=== PATIENT | female | born 1950 | race Caucasian/White ===

== ENCOUNTER 2022-12-07 16:34 | Emergency (ER) | payer MEDICARE, OTHER ==
[~2022-12-07 16:34] MED LIST: Iopamidol 370 76% 100 ML VIAL ONE
[2022-12-07 17:09] LABS: #Basophils 0.1 10x3/uL (0.0-0.2); #Eosinphils 0.1 10x3/uL (0.0-0.5); #Monocytes 0.6 10x3/uL (0.0-1.1); #Neutrophils 5.6 10x3/uL (1.5-8.4); %Basophils 0.8 % (0.0-2.0); %Eosinophils 0.8 % (0.0-6.0); %Lymphocytes 18.5 % (18.0-47.0); %Monocytes 7.4 % (0.0-10.0); %Neutrophils 72.2 % (40.0-75.0); Hemoglobin 15.4 g/dL (12.0-15.5); Mean Corpuscular HGB CONC 33.8 g/dL (32.0-36.0); Mean Corpuscular Volume 88.5 fl (81.6-98.3); Mean Platelet Volume 9.2 fl (7.4-10.4); Platelet Count 373 10x3/uL (150-450); RBC Distribution Width 13.2 % (11.5-14.5); Red Blood Cell (RBC) Count 5.14 10x6/uL (3.90-5.03); White Blood Cell (WBC) Count 7.8 10x3/uL (3.5-10.5)
[2022-12-07 17:20] LABS: ALT (SGPT) 16 U/L (8-55); AST (SGOT) 37 U/L (5-34); Alkaline Phosphatase 76 U/L (40-110); Anion Gap 18 mmol/L (10-20); BUN (Urea Nitrogen) 18 mg/dL (9.8-20.1); Bilirubin, Total 0.5 mg/dL (0.2-1.2); CK (CPK) 823 U/L (29-168); Calc. Creatinine Clearance 0 mL/min (70-130); Calcium 9.1 mg/dL (7.8-10.44); Carbon Dioxide 20 mmol/L (23-31); Chloride 104 mmol/L (98-107); Estimated GFR 92; Globulin 3.1 g/dL (2.4-3.5); Glucose 103 mg/dL (83-110); Lipase 22 U/L (8-78); Protein, Total 7.1 g/dL (5.8-8.1); Sodium 138 mmol/L (136-145)
[2022-12-07] MEDS ORDERED: Acetaminophen 325 MG TAB ONE (17:57)
[2022-12-07 19:32] LABS: SARS-CoV-2 NAA Rapid Test Not Detected (NotDetected)
[2022-12-07] MEDS ORDERED: Dexamethasone 10 MG/ML VIAL ONE (19:56)
[2022-12-07 21:30] LABS: INR-International Normal Ratio 1.1; PTT 29.1 sec (22.0-33.0); Prothrombin Time 11.7 sec (9.5-12.1)
[2022-12-07] MEDS ORDERED: Bacitracin 1 PK ONE (22:21)
[2022-12-07] MEDS ORDERED: Electrolyte Replacement Protocol 1 EACH IVPB ONE (22:50)
[2022-12-08] MEDS ORDERED: Dexamethasone 4 mg/ml Vial SLOW IVP SCH (09:00)
[2022-12-08] MEDS ORDERED: levETIRAcetam 500 MG/5 ML VIAL SLOW IVP SCH (09:00)
== END 2022-12-07 22:22 | disposition short-term general hospital (02) ==
LOC: CSHERS 16:34
DX: R22.0 Localized swelling, mass and lump, head (principal); S06.A1XA Traumatic brain compression with herniation, initial encounter; Z20.822 Contact with and (suspected) exposure to COVID-19; W18.09XA Striking against other object with subsequent fall, initial encounter
CPT/HCPCS: 0240U; 70450; 71045; 71275; 72125; 72170; 73030; 73502; 74177; 80053; 82550; 83605; 83690; 84484; 85025; 85610; 85730; 93005; 36415; 96361; 96374; J1100; Q9967